=== PATIENT | female | born 1955 | race Asian ===

== ENCOUNTER 2018-07-25 14:10 | Inpatient (IN) | payer BC ==
[2018-07-25] MEDS ORDERED: NACL 0.9% 3 ML SYG IV (15:30)
[2018-07-25] MEDS ORDERED: ONDANSETRON 4 MG INJ IV ×2 (15:30→20:00)
[2018-07-25] MEDS ORDERED: METOCLOPRAMIDE 10 MG INJ IV ×2 (15:30→20:00)
[2018-07-25 15:53] LABS: WHITE BLOOD COUNT 12.6 10^3/ul (4.8-10.8)
[2018-07-25 15:53] LABS: ADD MAN DIFF? NO; BASOPHILS % 0.2 % (0.0-2.0); EOSINOPHILS % 0.1 % (0.0-7.0); HEMATOCRIT 39.8 % (37.0-47.0); HEMOGLOBIN 12.9 g/dl (12.0-16.0); LYMPHOCYTES # 1.4 10^3/ul (0.8-2.9); LYMPHOCYTES % 10.8 % (15.0-51.0); MEAN CORPUSCULAR HEMOGLOBIN 28.1 pg (29.0-33.0); MEAN CORPUSCULAR HGB CONC 32.4 g/dl (32.0-37.0); MEAN CORPUSCULAR VOLUME 86.7 fl (82.0-101.0); MEAN PLATELET VOLUME 9.9 fl (7.4-10.4); MONOCYTE # 0.9 10^3/ul (0.3-0.9); MONOCYTES % 7.2 % (0.0-11.0); NEUTROPHIL # 10.2 10^3/ul (1.6-7.5); NEUTROPHILS % 81.1 % (39.0-77.0); PLATELET COUNT 314 10^3/UL (140-415); RED BLOOD COUNT 4.59 10^6/ul (4.20-5.40); RED CELL DISTRIBUTION WIDTH 12.2 % (11.5-14.5)
[2018-07-25 16:12] LABS: ANION GAP 12 (5-13); BLOOD UREA NITROGEN 9 mg/dl (7-20); CARBON DIOXIDE 21 mmol/L (21-31); CHLORIDE 107 mmol/L (97-110); CREATININE 0.41 mg/dl (0.44-1.00); Estimated GFR > 60 mL/min (>60); GLUCOSE 102 mg/dl (70-220); POTASSIUM 3.5 mmol/L (3.5-5.1); SODIUM 140 mmol/L (135-144)
[2018-07-25 16:13] LABS: INR 0.91; PROTIME 12.3 Sec (11.9-14.9)
[2018-07-25] MEDS: morphine 2 MG INJ IV ×2 (17:25→22:51)
[2018-07-25] MEDS: DEXTROSE 5%-0.45% NACL 1,000 ML IV (17:26)
[2018-07-25] MEDS: PIPER-TAZO 3.375 GM IV (PMX) 100 ML IVPB ×2 (17:28→23:48)
[2018-07-25] MEDS ORDERED: SUCCINYLCHOLINE CHLORIDE 100 MG/5 ML SYG IV (19:19)
[2018-07-25] MEDS ORDERED: NEOSTIGMINE 3 MG/3 ML SYRINGE (19:19)
[2018-07-25] MEDS ORDERED: LIDOCAINE 2% (SDV) 5 ML INJ (19:19)
[2018-07-25] MEDS ORDERED: ROCURONIUM 50 MG INJ (19:19)
[2018-07-25] MEDS ORDERED: GLYCOPYRROLATE 0.4 MG INJ (19:19)
[2018-07-25] MEDS ORDERED: PROPOFOL 20 ML (19:19)
[2018-07-25] MEDS ORDERED: MEPERIDINE /PF (100 MG/2 ML) AMPULE (19:20)
[2018-07-25] MEDS ORDERED: ONDANSETRON 4 MG INJ (19:48)
[2018-07-25] MEDS ORDERED: METOCLOPRAMIDE 10 MG INJ (19:48)
[2018-07-25] MEDS ORDERED: EPHEDrine SULFATE 50 MG/5 ML SYG (19:48)
[2018-07-25] MEDS ORDERED: PHENYLephrine (100 MCG/ML) 5ML SYG (19:53)
[2018-07-25] MEDS ORDERED: FENTAnyl 50 MCG/ML VIAL IV ×3 (20:00)
[2018-07-25] MEDS ORDERED: MIDAZOLAM 1 MG/ML 2 ML INJ IV (20:00)
[2018-07-25] MEDS ORDERED: HYDROmorphONE 1 MG/5 ML IV SYRINGE IV ×3 (20:00)
[2018-07-25] MEDS ORDERED: MEPERIDINE 25 MG INJ IV (20:00)
[2018-07-25] MEDS ORDERED: hydrALAzine 20 MG INJ IV (20:00)
[2018-07-25] MEDS ORDERED: DIPHENHYDRAMINE 50 MG INJ IV (20:00)
[2018-07-25] MEDS ORDERED: EPHEDrine SULFATE 50 MG/5 ML SYG IV (20:00)
[2018-07-25] MEDS ORDERED: LABETALOL HCL 20MG INJ IV (20:00)
[2018-07-25] MEDS ORDERED: OXYCODONE/ACETAMINOPHEN (5/325) TAB PO ×2 (20:00)
[2018-07-25] MEDS: BUPIVACAINE 0.25% (MPF) 30 ML INJ (20:03)
[2018-07-25] MEDS: LIDOCAINE 1%/EPI 30 ML INJ (20:03)
[2018-07-26] MEDS: DEXTROSE 5%-0.45% NACL 1,000 ML IV (01:04)
[2018-07-26 05:25] LABS: ADD MAN DIFF? NO
[2018-07-26 05:34] LABS: WHITE BLOOD COUNT 9.4 10^3/ul (4.8-10.8)
[2018-07-26 05:34] LABS: BASOPHILS % 0.3 % (0.0-2.0); EOSINOPHILS % 0.1 % (0.0-7.0); HEMATOCRIT 32.4 % (37.0-47.0); HEMOGLOBIN 10.7 g/dl (12.0-16.0); LYMPHOCYTES # 1.6 10^3/ul (0.8-2.9); LYMPHOCYTES % 16.6 % (15.0-51.0); MEAN CORPUSCULAR HEMOGLOBIN 27.8 pg (29.0-33.0); MEAN CORPUSCULAR VOLUME 84.2 fl (82.0-101.0); MEAN PLATELET VOLUME 9.9 fl (7.4-10.4); MONOCYTE # 0.7 10^3/ul (0.3-0.9); MONOCYTES % 7.3 % (0.0-11.0); NEUTROPHIL # 7.1 10^3/ul (1.6-7.5); NEUTROPHILS % 75.4 % (39.0-77.0); PLATELET COUNT 297 10^3/UL (140-415); RED BLOOD COUNT 3.85 10^6/ul (4.20-5.40); RED CELL DISTRIBUTION WIDTH 12.6 % (11.5-14.5)
[2018-07-26] MEDS: PANTOPRAZOLE 40 MG INJ IV (05:44)
[2018-07-26] MEDS: PIPER-TAZO 3.375 GM IV (PMX) 100 ML IVPB ×3 (05:44→22:08)
[2018-07-26 05:51] LABS: ANION GAP 10 (5-13); BLOOD UREA NITROGEN 7 mg/dl (7-20); CALCIUM 8.5 mg/dl (8.4-10.2); CARBON DIOXIDE 26 mmol/L (21-31); CHLORIDE 105 mmol/L (97-110); CREATININE 0.54 mg/dl (0.44-1.00); Estimated GFR > 60 mL/min (>60); GLUCOSE 125 mg/dl (70-220); POTASSIUM 3.1 mmol/L (3.5-5.1); SODIUM 141 mmol/L (135-144)
[2018-07-26 05:53] LABS: MAGNESIUM 1.8 mg/dl (1.7-2.5)
[2018-07-26 05:53] LABS: PHOSPHORUS 2.8 mg/dl (2.5-4.9)
[2018-07-26] MEDS: morphine 2 MG INJ IV (05:59)
[2018-07-26] MEDS: INFLUENZA VIRUS VACCINE 0.5 ML (DISPENSING) IM* (09:01)
[2018-07-26] MEDS ORDERED: OXYCODONE/ACETAMINOPHEN (5/325) TAB PO (09:30)
[2018-07-26] MEDS: POTASSIUM CHLORIDE (SR) 20 MEQ TAB PO (10:46)
[2018-07-26] MEDS: ACETAMINOPHEN 325 MG TAB PO ×2 (14:17→22:12)
[2018-07-26] MEDS: SOD CHLORIDE 0.9% 1,000 ML IV (16:07)
[2018-07-26 17:00] LABS: LACTIC ACID 1.2 mmol/L (0.5-2.0)
[2018-07-27 05:25] LABS: ADD MAN DIFF? NO; BASOPHILS % 0.3 % (0.0-2.0); EOSINOPHILS # 0.1 10^3/ul (0.0-0.5); HEMATOCRIT 32.7 % (37.0-47.0); HEMOGLOBIN 10.8 g/dl (12.0-16.0); LYMPHOCYTES # 1.4 10^3/ul (0.8-2.9); LYMPHOCYTES % 13.4 % (15.0-51.0); MEAN CORPUSCULAR HEMOGLOBIN 28.1 pg (29.0-33.0); MEAN CORPUSCULAR VOLUME 84.9 fl (82.0-101.0); MEAN PLATELET VOLUME 9.9 fl (7.4-10.4); MONOCYTE # 0.8 10^3/ul (0.3-0.9); MONOCYTES % 7.7 % (0.0-11.0); NEUTROPHILS % 77.2 % (39.0-77.0); PLATELET COUNT 285 10^3/UL (140-415); RED BLOOD COUNT 3.85 10^6/ul (4.20-5.40); RED CELL DISTRIBUTION WIDTH 12.5 % (11.5-14.5)
[2018-07-27 05:25] LABS: WHITE BLOOD COUNT 10.4 10^3/ul (4.8-10.8)
[2018-07-27] MEDS: PANTOPRAZOLE 40 MG INJ IV (05:53)
[2018-07-27] MEDS: PIPER-TAZO 3.375 GM IV (PMX) 100 ML IVPB ×3 (05:54→22:11)
[2018-07-27 06:06] LABS: MAGNESIUM 2.2 mg/dl (1.7-2.5)
[2018-07-27 06:12] LABS: ANION GAP 9 (5-13); BLOOD UREA NITROGEN 5 mg/dl (7-20); CALCIUM 8.6 mg/dl (8.4-10.2); CARBON DIOXIDE 25 mmol/L (21-31); CHLORIDE 108 mmol/L (97-110); CREATININE 0.49 mg/dl (0.44-1.00); Estimated GFR > 60 mL/min (>60); GLUCOSE 112 mg/dl (70-220); POTASSIUM 3.5 mmol/L (3.5-5.1); SODIUM 142 mmol/L (135-144)
[2018-07-27] MEDS: SOD CHLORIDE 0.9% 1,000 ML IV ×2 (06:18→15:37)
[2018-07-27] MEDS: ACETAMINOPHEN 325 MG TAB PO ×2 (12:09→22:13)
[2018-07-28 05:17] LABS: ADD MAN DIFF? NO
[2018-07-28 05:26] LABS: BASOPHILS % 0.4 % (0.0-2.0); EOSINOPHILS # 0.2 10^3/ul (0.0-0.5); EOSINOPHILS % 3.3 % (0.0-7.0); HEMATOCRIT 34.2 % (37.0-47.0); HEMOGLOBIN 11.1 g/dl (12.0-16.0); LYMPHOCYTES # 1.4 10^3/ul (0.8-2.9); LYMPHOCYTES % 19.7 % (15.0-51.0); MEAN CORPUSCULAR HEMOGLOBIN 27.4 pg (29.0-33.0); MEAN CORPUSCULAR HGB CONC 32.5 g/dl (32.0-37.0); MEAN CORPUSCULAR VOLUME 84.4 fl (82.0-101.0); MEAN PLATELET VOLUME 9.9 fl (7.4-10.4); MONOCYTE # 0.5 10^3/ul (0.3-0.9); MONOCYTES % 6.8 % (0.0-11.0); NEUTROPHIL # 4.9 10^3/ul (1.6-7.5); NEUTROPHILS % 69.5 % (39.0-77.0); PLATELET COUNT 329 10^3/UL (140-415); RED BLOOD COUNT 4.05 10^6/ul (4.20-5.40); RED CELL DISTRIBUTION WIDTH 12.4 % (11.5-14.5)
[2018-07-28 05:59] LABS: ANION GAP 11 (5-13); BLOOD UREA NITROGEN 7 mg/dl (7-20); CARBON DIOXIDE 25 mmol/L (21-31); CHLORIDE 110 mmol/L (97-110); CREATININE 0.47 mg/dl (0.44-1.00); Estimated GFR > 60 mL/min (>60); GLUCOSE 103 mg/dl (70-220); POTASSIUM 3.6 mmol/L (3.5-5.1); SODIUM 146 mmol/L (135-144)
[2018-07-28] MEDS: PIPER-TAZO 3.375 GM IV (PMX) 100 ML IVPB (06:14)
[2018-07-28] MEDS: SOD CHLORIDE 0.9% 1,000 ML IV (06:14)
[2018-07-28] MEDS: PANTOPRAZOLE 40 MG INJ IV (06:14)
== END 2018-07-28 12:30 | disposition home or self-care (01) | DRG 339 ==
LOC: MS1 14:10
PROC: 0DTJ4ZZ Resection of Appendix, Percutaneous Endoscopic Approach (ICD-10-PCS; principal; 2018-07-25 19:37)
DX: K35.32 Acute appendicitis with perforation, localized peritonitis, and gangrene, without abscess (principal); R65.10 Systemic inflammatory response syndrome (SIRS) of non-infectious origin without acute organ dysfunction; R11.2 Nausea with vomiting, unspecified; D64.9 Anemia, unspecified; E66.9 Obesity, unspecified; Z68.30 Body mass index [BMI] 30.0-30.9, adult
CPT/HCPCS: 80048; 83605; 83735; 84100; 84703; 85025; 85610; 87040; 88304; 90686; 93005